=== PATIENT | male | born 1995 | race Caucasian/White ===

== ENCOUNTER 2017-03-25 20:57 | Emergency (ER) | payer OTHER ==
[~2017-03-25] VITALS: Ht 182.9 cm; Wt 84.5 kg
[2017-03-25 22:02] LABS: MCHC 36.7 G/DL (30.0-36.0); MCV 95.2 FL (86-99); MEAN PLAT.VOLUME 8.9 uM^3 (9.0-12.4); PLATELET COUNT 236 K/uL (156-360); RBC DIS.WIDTH-CV 12.2 % (11.8-14.6); RED BLOOD COUNT 4.83 M/uL (4.00-5.50); WHITE BLOOD COUNT 10.2 K/uL (4.1-10.2)
[2017-03-25 22:10] LABS: CHLORIDE 104 mEq/L (99-109); POTASSIUM 3.8 mEq/L (3.7-5.4); SODIUM 137 mEq/L (136-147)
[2017-03-25 22:12] LABS: GLUCOSE 112 mg/dL (70-99)
[2017-03-25 22:13] LABS: ANION GAP 11 MEQ/L (2-14)
[2017-03-25 22:14] LABS: TOTAL BILIRUBIN 1.2 mg/dL (0.0-1.0)
[2017-03-25 22:15] LABS: SERUM ETHYL ALCOHOL < 10 mg/dL
[2017-03-25 22:16] LABS: ALKALINE PHOSPHATASE 81 IU/L (3-129); GFR ESTIMATE (CALCULATED) > 59 mL/min/
[2017-03-25 22:17] LABS: UREA NITROGEN (BUN) 12 mg/dL (9-23)
[2017-03-25 22:19] VITALS: BP 149/104
== END 2017-03-25 22:21 | disposition left against medical advice (07) ==
LOC: EME 20:57
PROVIDERS: Emergency Medicine
DX: F11.23 Opioid dependence with withdrawal (principal); F17.200 Nicotine dependence, unspecified, uncomplicated
CPT/HCPCS: 80053; 81003; 85027; 99281; 99283; G0480; Q0169